=== PATIENT | male | born 1990 | race Two or more races ===

== ENCOUNTER 2021-06-19 22:01 | Emergency (ER) | payer OTHER ==
[~2021-06-19] VITALS: Ht 177.8 cm; Wt 74.8 kg
[2021-06-19 22:06] VITALS: BP 135/98
[2021-06-19] MEDS ORDERED: FLUORESCEIN SODIUM OPHTH 1 EA STRIP ONE ×2 (22:23→22:25)
[2021-06-19] MEDS ORDERED: CIPR5DRO RIGHTEYE (22:36)
--- NOTE | 2021-06-19 22:41 | NUR ---
Patient discharged to long term in stable condition. Written and verbal after care instructions given. Patient verbalizes understanding of instruction. Patient medically cleared for booking.
== END 2021-06-19 22:50 ==
LOC: ER 22:05
DX: H10.31 Unspecified acute conjunctivitis, right eye (principal)